=== PATIENT | female | born 1995 | race Caucasian/White ===

== ENCOUNTER → 2017-03-11 | Outpatient (CLI) | payer OTHER ==
[~2017-03-11] MED LIST: ANTIVERT 25MG25 MG PO; MAG-G500 MG PO; PHENERGAN 25 TA25 MG PO; PROZAC40 MG PO
== END ==
LOC: BHSO 10:45
DX: F31.81 Bipolar II disorder (principal)
CPT/HCPCS: 90791-AI

== ENCOUNTER → 2017-05-12 | Outpatient (CLI) | payer OTHER | LOC: BHSO 13:32 | DX: F31.81 Bipolar II disorder (principal) ==

== ENCOUNTER → 2017-08-12 | Outpatient (CLI) | payer OTHER | LOC: BHSO 08:09 | DX: F31.81 Bipolar II disorder (principal) ==

== ENCOUNTER → 2017-11-11 | Outpatient (CLI) | payer OTHER | LOC: BHSO 08:12 | DX: F31.81 Bipolar II disorder (principal) | CPT/HCPCS: G0463 ==

== ENCOUNTER → 2018-01-02 | Outpatient (CLI) | payer OTHER | LOC: BHSO 08:03 | DX: F31.81 Bipolar II disorder (principal) | CPT/HCPCS: G0463 ==

== ENCOUNTER → 2018-04-13 | Outpatient (CLI) | payer OTHER | LOC: BHSO 11:15 | DX: F31.81 Bipolar II disorder (principal) ==

== ENCOUNTER → 2018-06-16 | Outpatient (CLI) | payer OTHER | LOC: BHSO 07:59 | DX: F31.81 Bipolar II disorder (principal) | CPT/HCPCS: G0463 ==